=== PATIENT | male | born 1990 | race African-American/Black ===

== ENCOUNTER 2020-07-29 23:49 | Emergency (ER) | payer SELFPAY ==
[~2020-07-29] VITALS: Ht 180.3 cm; Wt 122.5 kg
[2020-07-30] MEDS ORDERED: ASPIRIN 81 MG CHEW TAB PO ONE
[2020-07-30] MEDS ORDERED: KETOROLAC TROMETHAMINE 30 MG/ML VIAL IV STA (00:18)
[2020-07-30 00:20] LABS: BASOPHILS # (AUTO) 0.1 (0.0-0.1); EOSINOPHILS # (AUTO) 0.1 (0.0-0.4); EOSINOPHILS % 2.1 % (0.0-6.0); HEMATOCRIT 41.4 % (38.2-49.6); HEMOGLOBIN 13.9 g/dL (14.0-18.0); LYMPHOCYTES # (AUTO) 1.7 (1.0-3.2); LYMPHOCYTES % 27.4 % (18.0-39.1); MEAN CORPUSCULAR HEMOGLOBIN 31.4 pg (28-32); MEAN CORPUSCULAR HGB CONC 33.6 g/dL (31-35); MEAN CORPUSCULAR VOLUME 93.5 fL (81-99); MONOCYTES # (AUTO) 0.4 (0.2-0.8); NEUTROPHILS # (AUTO) 3.9 (2.1-6.9); NEUTROPHILS % 62.3 % (38.7-80.0); PLATELET COUNT 267 x10e3/uL (140-360); RED BLOOD COUNT 4.43 x10e6/uL (4.3-5.7); RED CELL DISTRIBUTION WIDTH 12.2 % (11.7-14.4)
[2020-07-30 00:41] LABS: ALANINE AMINOTRANSFERASE 18 IU/L (0-55); ALBUMIN 4.4 g/dL (3.5-5.0); ALBUMIN/GLOBULIN RATIO 1.3 (0.8-2.0); ALKALINE PHOSPHATASE 73 IU/L (40-150); BLOOD UREA NITROGEN 10 mg/dL (7-26); BUN/CREATININE RATIO 10 (6-25); CALCIUM 10.8 mg/dL (8.4-10.2); CARBON DIOXIDE 28 mmol/L (22-29); CHLORIDE 101 mmol/L (98-107); CREATINE KINASE 376 IU/L (30-200); EST GLOMERULAR FILTRATION RATE > 60 ML/MIN (60-); GLUCOSE 93 mg/dL (74-118); SODIUM 138 mmol/L (136-145)
[2020-07-30 01:03] LABS: AMPHETAMINES SCREEN,URINE NEGATIVE (NEGATIVE); BENZODIAZEPINES SCREEN,URINE NEGATIVE (NEGATIVE); PHENCYCLIDINE SCREEN,URINE NEGATIVE (NEGATIVE)
[2020-07-30] MEDS ORDERED: SODIUM CHLORIDE 0.9% 50ML 50 ML ONE (01:17)
[2020-07-30] MEDS ORDERED: IOPAMIDOL 370 MG/ML 200 ML INFUS..BTL INJ ONE (01:18)
[2020-07-30 02:42] LABS: CREATINE KINASE MB 0.7 ng/mL (0-5.0)
== END 2020-07-30 03:22 | disposition home or self-care (01) ==
LOC: ER 23:53
DX: R10.13 Epigastric pain (principal); R07.89 Other chest pain; I31.9 Disease of pericardium, unspecified; E83.52 Hypercalcemia
CPT/HCPCS: 36415; 71046; 71260; 80053; 80307; 82550; 82553; 83880; 84484; 85025; 85379; 93005; 99284; J1885; Q9967

== ENCOUNTER 2021-03-19 14:34 | Emergency (ER) | payer SELFPAY ==
[~2021-03-19] VITALS: Ht 180.3 cm; Wt 122.5 kg
== END 2021-03-19 16:28 | disposition home or self-care (01) ==
LOC: ER 15:10
DX: M79.605 Pain in left leg (principal); R60.9 Edema, unspecified
CPT/HCPCS: 93971; 99283

== ENCOUNTER 2022-02-22 23:24 | Emergency (ER) | payer SELFPAY ==
[~2022-02-22] VITALS: Ht 180.3 cm; Wt 122.5 kg
== END 2022-02-22 23:49 | disposition home or self-care (01) ==
LOC: ER 23:31
DX: H00.015 Hordeolum externum left lower eyelid (principal)
CPT/HCPCS: 99282

== ENCOUNTER 2022-02-24 09:04 | Emergency (ER) | payer SELFPAY ==
[~2022-02-24] VITALS: Ht 180.3 cm; Wt 122.5 kg
== END 2022-02-24 10:00 | disposition home or self-care (01) ==
LOC: ER 09:19
DX: H00.015 Hordeolum externum left lower eyelid (principal)
CPT/HCPCS: 99282